=== PATIENT | male | born 1980 | race Two or more races ===

== ENCOUNTER 2018-01-31 19:13 | Emergency (ER) | payer OTHER ==
[~2018-01-31] VITALS: Ht 185.4 cm; Wt 81.6 kg
[2018-01-31 19:25] VITALS: Ht 185.4 cm; Wt 81.6 kg
[2018-01-31 20:12] LABS: BASOPHIL % 0.4 % (0-2); PLATELET COUNT 224 x10^3mcL (130-400); RED CELL DISTRIBUTION WIDTH 12.3 % (11.5-14.5)
[2018-01-31 20:19] LABS: CARBON DIOXIDE 26.4 mmol/L (21-32); CHLORIDE SERUM 101 mmol/L (98-107); GFR1 > 60 mL/min; GLUCOSE SERUM 103 mg/dL (74-106); POTASSIUM SERUM 3.6 mmol/L (3.5-5.1); SODIUM SERUM 134 mmol/L (136-145)
[2018-01-31 20:22] LABS: ALBUMIN 4.2 g/dL (3.4-5.0); ALKALINE PHOSPHATASE 50 U/L (46-116); ALT/SGPT 42 U/L (16-63); AST/SGOT 42 U/L (15-37); TOTAL PROTEIN, SERUM 7.4 g/dL (6.4-8.2)
[2018-01-31 21:08] LABS: AMPHETAMINE QUAL UR POSITIVE (NEG <=1000)
[2018-01-31 22:02] VITALS: BP 150/99
== END 2018-01-31 22:02 | disposition home or self-care (01) ==
LOC: ED 19:13
PROVIDERS: Emergency Medicine
DX: F19.10 Other psychoactive substance abuse, uncomplicated (principal)
CPT/HCPCS: 36415; G0480; Q0092